=== PATIENT | female | born 1980 | race Caucasian/White ===

== ENCOUNTER 2021-04-30 06:50 | Inpatient (IN) | payer MEDICAID, SELFPAY ==
[2021-04-30] VITALS (24 sets, daily range): BP systolic 126–163; BP diastolic 61–83; PULSE 48–66; RESP 16–18; TEMP 35.7–37.2; O2SAT 98–100; BMI 29.5
[2021-04-30] MEDS: Lactated Ringers 1,000 ML 50 ML IV (07:45)
[2021-04-30 08:02] LABS: Absolute Lymphocyte Count 1.67 X10^3/uL (0.83-4.51); Absolute Neutrophil Count 5.5 X10^3/uL (2.0-7.7); Basophil# 0.03 X10^3/uL; Basophil% 0.4 % (0-1); Eosinophils% 1.3 % (0-5); Hemoglobin 11.6 g/dL (12.0-15.0); Lymphocyte # 1.67 X10^3/ul (0.83-4.51); Mean Corp Hgb Conc 34.1 g/dL (32-36); Mean Corpuscular Hgb 31.4 pg (27.0-32.0); Mean Corpuscular Volume 91.9 fL (81-99); Mean Platelet Vol. 10.3 fl (6.2-12.0); Monocyte# 0.64 X10^3/uL; Monocyte% 8.1 % (0-10); NRBC Flagged by Analyzer 0 % (0-5); Neutrophil # 5.49 X10^3/uL (2.7-7.7); Neutrophil % 68.9 % (47-70); Platelet Count 232 K/mm3 (150-450); RBC Distribution Width CV 12.6 % (11.6-14.6); RBC Distribution Width SD 41.6 fl (35.1-43.9)
--- NOTE | 2021-04-30 08:04 | PCM.HP.OB ---
HPI - General General Date of Admission: 04/30/21 HPI Narrative DONG BANKS, is a 40 F at 39w5d who presents for scheduled IOL for AMA. Maternal Data Information BELEM Calculator Estimated Delivery Date Method Current WG Current Estimate 05/02/21 LMP (Certain) 39w 5d PFSH PFSH Home Medications vit-iron fum-folic ac [Prena-Tab] 1 tab PO DAILY 04/30/21 [History Last Taken 04/29/21 10:00] Allergy/AdvReac Type Severity Reaction Status Date / Time amoxicillin Allergy Hives Verified 04/30/21 07:34 minocycline Allergy Hives Verified 04/30/21 07:34 sulfamethoxazole Allergy Hives Verified 04/30/21 07:34 [From Bactrim] trimethoprim [From Bactrim] Allergy Hives Verified 04/30/21 07:34 hydrocodone AdvReac Nausea Verified 04/30/21 07:34 Social History Smoking Status: Former smoker History Elective abortions Hx Para 4 Spontaneous abortions Hx # Term Pregnancies Ectopic pregnancies Hx # Pregnancies Multiple births # of living children NST FHR Rate Baby A FHR Category:: Category I Vital Signs Vital Signs Vital Signs: 04/30/21 07:37 04/30/21 07:38 Temperature 98.6 F Pulse Rate 66 Blood Pressure 126/78 H BP Systolic 126 BP Diastolic 78 Pulse Ox 98 Weight Weight: 161 lb 13.109 oz Body Mass Index (BMI) 29.5 Physical Exam Const alert and no apparent distress General Appearance: comfortable Labs Labs Labs: Blood Type Pending Antibody Screen Pending Hct 34.0 % (37-47) L Hgb 11.6 g/dL (12.0-15.0) L Assessment & Plan (1) 39 weeks gestation of : PLAN: - Admit for scheduled IOL for AMA - Routine intrapartum care - GBS negative - Epidural PRN - Covid test negative - Pelvis adequate and EFW expected to be < 4500 g. Anticipate (2) Advanced maternal age (AMA) in :
[2021-04-30] MEDS: Oxytocin 30 units/NS 500 ml 30 UNITS/500 ML IV.SOLN IV (08:15)
--- NOTE | 2021-04-30 13:04 | PCM.PN.BLA ---
Progress Note At bedside and pt uncomfortable with ctx's. Cvx /-1, head well applied. AROM performed in usual fashion with return of a small amount of clear fluid. Cont to titrate pitocin. Anticipate vaginal delivery.
[2021-04-30] MEDS: Oxytocin 30 units/NS 500 ml 30 UNITS/500 ML IV.SOLN 334 UNITS IV (14:16)
--- NOTE | 2021-04-30 14:21 | EX.PCM.OBRPT ---
Assessment & Plan (1) (spontaneous vaginal delivery): (2) Advanced maternal age (AMA) in : Maternal Data Information BELEM Calculator Estimated Delivery Date Method Current WG Current Estimate 05/02/21 LMP (Certain) 39w 5d Vaginal Delivery Maternal Presentation Maternal Presentation: 39.5 weeks gestation- induction of labor for AMA Type of Induction: Pitocin and Amniotomy Operative Information Pre-Operative Diagnosis: Term gestation, AMA Post-Operative Diagnosis: same, live male Surgery / Procedure Performed: Spontaneous Vaginal Delivery Type of Anesthesia: None Estimated Blood Loss: 200 Time of Delivery: 14:12 Findings Description of Procedure: Called to patient room due to unmedicated labor and patient wanting to push. Patient complete dilation. Infant head delivered with minimal maternal effort on first push. Loose nuchal cord x 2 easily reduced and remainder of body delivered quickly. Vigorous male placed on maternal abdomen and attended to by nursing staff. Pitocin IV started for active management of the third stage of labor. 3 vessel cord clamped and cut by FOB after 2 minute delay. Infant placed immediately skin to skin with patient. Placenta delivered spontaneously and intact. Perineum and vagina found to be intact after inspection. Fundus firm 1 below U. Minimal bleeding. EBL 200 cc APGARS 9/9. Patient and bonding at this time. Presentation: Vertex Amniotic Membrane Rupture Type: Artificial Amniotic Fluid Description: Clear Placental Delivery Description: Spontaneous Placenta Disposition: [facility] Cord Vessel Description: 3 Vessels Cord Entanglement: Around neck x 2, loose Nuchal Cord Compression: Without compression A Gender: Male (1 minute): 9 (5 minute): 9 Delayed Cord Clamping: Yes Post Vaginal Delivery Medications Given After Delivery: IV Pitocin Episiotomy Description: None Laceration: None Complication Complications: None
[2021-04-30] MEDS: Naproxen 500 MG Tablet PO (15:06)
[2021-04-30] MEDS: Hydrocortisone 2.5% Crm 1 APPLIC TOPICAL (15:07)
--- NOTE | 2021-04-30 18:11 | NURSING ---
dr lynch notified of elevated BP's during recovery- labs ordered
[2021-04-30 18:54] LABS: Hematocrit 32.5 % (37-47); Hemoglobin 11.4 g/dL (12.0-15.0); Mean Corp Hgb Conc 35.1 g/dL (32-36); Mean Corpuscular Hgb 31.8 pg (27.0-32.0); Mean Corpuscular Volume 90.8 fL (81-99); Mean Platelet Vol. 10.4 fl (6.2-12.0); Platelet Count 242 K/mm3 (150-450); RBC Distribution Width CV 12.8 % (11.6-14.6); RBC Distribution Width SD 41.8 fl (35.1-43.9); Red Blood Count 3.58 M/mm3 (4.2-5.4); White Blood Count 18.9 K/mm3 (4.4-11.0)
[2021-04-30 19:19] LABS: ALB/GLOB Ratio 0.6 RATIO (0.9-2.4); AST(SGOT) 20 U/L (15-37); Alanine Aminotransfer ALT/SGPT 20 U/L (13-56); Albumin, Serum 2.6 g/dL (3.2-5.0); Alkaline Phosphatase 161 U/L (45-117); Anion Gap 11 (5-15); BUN 10 mg/dL (7-18); BUN/Creat Ratio 9.4 RATIO (10-20); Calcium,Total 8.3 mg/dL (8.5-10.1); Chloride 106 mmol/L (98-107); Creatinine, Serum 1.06 mg/dL (0.55-1.02); EST Glomerular Filtration Rate 61 mL/min (>60); Est Glom Filt Rate - Afr Amer 74 mL/min (>60); Estimated Creatinine Clearance 56.36 ml/min; Globulin 4.2 g/dL (2.2-4.2); Glucose 128 mg/dL (74-106); Potassium 3.6 mmol/L (3.5-5.1); Protein, Total 6.8 g/dL (6.4-8.2); Sodium Level 138 mmol/L (136-145)
[2021-05-01] VITALS (7 sets, daily range): BP systolic 130–139; BP diastolic 74–86; PULSE 53–70; RESP 16–18; TEMP 36.2–37
[2021-05-01] MEDS: 0.9% Saline Lock 10 ML Syringe IV (00:13)
--- NOTE | 2021-05-01 11:21 | PCM.PN.OB ---
Subjective Subjective Patient seen at bedside. Resting quietly. without difficulty. Denies pain. Ambulating and voiding without difficulty. Desires discharge home today. Objective Data Objective Data Vital Signs: Vital Signs Temp Pulse Resp BP Pulse Ox 98.0 F 70 16 135/84 H 100 05/01/21 08:49 05/01/21 08:49 05/01/21 08:49 05/01/21 08:49 04/30/21 11:46 Oxygen Delivery Method Room Air Weight: 161 lb 13.109 oz Body Mass Index (BMI) 29.5 Intake & Output: Intake and Output for Last 24 Hours 04/29/21 04/30/21 05/01/21 23:59 23:59 23:59 Intake Total 1377.84 / 1377.84 Output Total 600 / 600 Balance 777.84 / 777.84 Lab / Micro Data Result Diagrams: 04/30/21 Unknown 04/30/21 Unknown Labs: Laboratory Results - last 24 hr 04/30/21 07:45: MCV 91.9, MCHC 34.1 04/30/21 : WBC 18.9 H, RBC 3.58 L, Hgb 11.4 L, Hct 32.5 L, MCV 90.8, MCH 31.8, MCHC 35.1, RDW Std Deviation 41.8, RDW Coeff of Juwan 12.8, Plt Count 242, MPV 10.4 04/30/21 : Sodium 138, Potassium 3.6, Chloride 106, Carbon Dioxide 21.0, Anion Gap 11, BUN 10, Creatinine 1.06 H, Estim Creat Clear Calc 56.36, Est GFR (MDRD) Af Amer 74, Est GFR (MDRD) Non-Af 61, BUN/Creatinine Ratio 9.4 L, Glucose 128 H, Calcium 8.3 L, Total Bilirubin 0.30, AST 20, ALT 20, Alkaline Phosphatase 161 H, Total Protein 6.8, Albumin 2.6 L, Globulin 4.2, Albumin/Globulin Ratio 0.6 L ROS Eyes Eyes: Denies blurry vision, change in vision or spots in vision ENT HEENT: Denies dizziness or headache(s) Cardiovascular Cardiovascular: Denies abdominal pain, chest pain or dyspnea Respiratory/Chest Respiratory/Chest: Denies cough, dyspnea, shortness of breath at rest or shortness of breath with exertion Gastrointestinal Gastrointestinal: Denies abdominal pain, diarrhea or vomiting Genitourinary Genitourinary: Denies change in urinary stream, difficulty urinating or dysuria Musculoskeletal Musculoskeletal: Reports none Integumentary Integumentary: Denies rash Neurologic Neurologic: Denies dizziness, headache(s), memory loss or weakness Physical Exam Const alert and no apparent distress General Appearance: cooperative and comfortable Exam Limitations: no limitations HEENT normocephalic Eyes General Eye: normal appearance of both eyes Neck full ROM General: normal visual inspection Chest Chest: symmetrical chest wall rise Resp normal respiratory effort and normal air movement Effort and Inspection: symmetric chest movement Auscultation: clear to auscultation bilaterally Cardio regular rate and regular rhythm GI normal to inspection, nondistended, normoactive bowel sounds Back/Spine normal ROM Extremity full ROM and no calf tenderness General Extremity: normal exam except as noted Skin no rashes or lesions noted Neuro CN's II-XII intact bilaterally Psych mental status grossly normal Assessment & Plan (1) (spontaneous vaginal delivery): PLAN: PPD 1 - intact Routine care Breast feeding support Discharge home with follow up in office
--- NOTE | 2021-05-01 11:22 | PCM.DC ---
Discharge Instructions Diet Discharge Diet: No restrictions Activity May resume sexual activity in: 6-8 weeks Weight Bearing Status: Weight bearing as tolerated Dressing / Incision Call your doctor if you observe: Fever of 101 or Higher, Inability to urinate, Using more than 1 pad per hour, Shortness of breath, Chest pain, Calf discomfort and Uncontrolled pain Follow Up Care Please Follow Up With: Natalia Riley CNM When: 2 weeks virtual visit/ 6 weeks in office Test Results: Test results from this visit will be discussed in further detail at your follow-up appointment, if applicable. Discharge Plan Admission Admit Date/Time: 04/30/21 06:50 Primary Reason for Your Visit: labor and delivery Attending Provider: Natalia Riley Instructions Patient Instructions: After a Vaginal Discharge Orders/Prescriptions Prescriptions: No Action Prena-Tab 65 mg iron- 1 mg Tablet 1 tab PO DAILY RF: 0 Referrals / Follow Up: FAISAL CHÁVEZ [Other] Disposition Disposition (needs filled in before D/C Order can be placed): Home, Self Care
[2021-05-01] MEDS: Prenatal Vits Tablet 1 TABLET PO (12:51)
== END 2021-05-01 16:35 | disposition home or self-care (01) | DRG 560 ==
PROVIDERS: Obstetrics & Gynecology; Admitting Provider Advanced Practice Midwife; Visit Provider Advanced Practice Midwife
DX: O69.81X0 Labor and delivery complicated by cord around neck, without compression, not applicable or unspecified (principal); Z87.891 Personal history of nicotine dependence; Z3A.39 39 weeks gestation of pregnancy; Z37.0 Single live birth
CPT/HCPCS: 59025; 59050; 80053; 85025; 85027; 86850; 86900; 86901; 99218; J7120; A4216; G0378